=== PATIENT | female | born 1960 | race Caucasian/White ===

== ENCOUNTER 2017-11-11 10:23 | Inpatient (IN) | payer OTHER ==
[~2017-11-11] VITALS: Ht 162.6 cm; Wt 71.7 kg
[2017-11-11 10:29] VITALS: BP 136/69
[2017-11-11] MEDS ORDERED: FLONASE 0.05%50 MCG NASAL (10:34)
[2017-11-11] MEDS ORDERED: CLARITIN10 MG PO (10:34)
[2017-11-11 11:08] LABS: ABSOLUTE BASOPHILS 0.1 thou/uL (0.0-0.2); ABSOLUTE EOSINOPHILS 0.1 thou/uL (0.0-0.7); ABSOLUTE LYMPHOCYTES 2.3 thou/uL (0.8-5.3); ABSOLUTE MONOCYTES 0.4 thou/uL (0.0-1.2); ABSOLUTE NEUTROPHILS 5.4 thou/uL (1.6-8.1); BASOPHILS 0.9 %; EOSINOPHILS 1.3 %; HEMATOCRIT 42.2 % (37.0-47.0); HEMOGLOBIN 13.2 gm/dL (12.0-15.0); LYMPHOCYTES 27.4 %; MCHC 31.4 g/dL (28.0-37.0); MCV 76.5 fL (80.0-100.0); MONOCYTES 5.1 %; NUCLEATED RBCS 0 /100WBC; PLATELET COUNT* 350 thou/uL (150-400); POLYS 65.3 %; RBC 5.52 mil/uL (4.20-5.00); RDW-CV 15.6 % (10.5-14.5); WBC 8.3 thou/uL (4.0-11.0)
[2017-11-11 11:21] LABS: APTT 25.7 Seconds (25.0-31.3); PROTIME 9.4 Seconds (9.20-11.50)
[2017-11-11 11:23] LABS: CREATININE 0.9 mg/dL (0.6-1.3); POTASSIUM 3.8 mmol/L (3.5-5.1)
[2017-11-11 11:25] LABS: TOTAL BILIRUBIN 0.3 mg/dL (<0.1-1.0); TOTAL PROTEIN 6.9 g/dL (6.4-8.2)
[2017-11-11 12:08] LABS: URINE BILIRUBIN NEGATIVE (Negative); URINE BLOOD 3+ (Negative); URINE CLARITY CLEAR; URINE COLOR YELLOW; URINE GLUCOSE-RANDOM 3+ (Negative); URINE KETONES NEGATIVE (Negative); URINE LEUKOCYTES-REFLEX NEGATIVE (Negative); URINE NITRITE-REFLEX NEGATIVE (Negative); URINE PROTEIN NEGATIVE (Negative); URINE UROBILINOGEN 0.2 E.U./dl (0.2-1.0)
[2017-11-11 12:19] LABS: BACTERIA-REFLEX None Seen /HPF (None Seen); CASTS None Seen /LPF (None Seen); CRYSTALS None Seen /LPF (None Seen); SQUAMOUS 4-10 Moderate /LPF (0-3); URINE RBC >20 Many /HPF (0-2); URINE WBC-REFLEX 0-5 Rare /HPF (0-5)
--- NOTE | 2017-11-11 13:05 | NUR ---
SURGERY RESIDENT CONSULTING WITH PATIENT.
[2017-11-11 14:30] VITALS: BP 139/89
[2017-11-11 14:36] VITALS: BP 132/82
[2017-11-11 16:02] LABS: ABSOLUTE BASOPHILS 0.1 thou/uL (0.0-0.2); ABSOLUTE EOSINOPHILS 0.1 thou/uL (0.0-0.7); ABSOLUTE LYMPHOCYTES 3.4 thou/uL (0.8-5.3); ABSOLUTE MONOCYTES 0.6 thou/uL (0.0-1.2); ABSOLUTE NEUTROPHILS 8.7 thou/uL (1.6-8.1); BASOPHILS 0.6 %; EOSINOPHILS 0.8 %; HEMATOCRIT 44.8 % (37.0-47.0); HEMOGLOBIN 14.2 gm/dL (12.0-15.0); LYMPHOCYTES 26.6 %; MCH 23.8 pg (26.0-34.0); MCHC 31.7 g/dL (28.0-37.0); MCV 75.3 fL (80.0-100.0); MONOCYTES 4.6 %; NUCLEATED RBCS 0 /100WBC; PLATELET COUNT* 394 thou/uL (150-400); POLYS 67.4 %; RBC 5.95 mil/uL (4.20-5.00); RDW-CV 15.9 % (10.5-14.5); WBC 12.9 thou/uL (4.0-11.0)
[2017-11-11 16:14] LABS: CALCIUM 8.6 mg/dL (8.5-10.1); CREATININE 0.7 mg/dL (0.6-1.3); POTASSIUM 3.7 mmol/L (3.5-5.1)
[2017-11-11 16:19] LABS: ALBUMIN 2.9 g/dL (3.4-5.0); TOTAL BILIRUBIN 0.3 mg/dL (<0.1-1.0)
[2017-11-11 20:00] VITALS: BP 104/42
--- NOTE | 2017-11-11 20:07 | NUR ---
ALERT AND ORIENTED X4. UP WITH STAND BY ASSIST IN ROOM. IV IS PATENT AND INFUSING. PAIN BEING MANAGED WITH BARRIER CREAM AND TYLENOL. DENIES NAUSEA. VSS ON ROOM AIR. HOURLY ROUNDS HAVE BEEN MAINTAINED THROUGHOUT SHIFT. CALL LIGHT IS WITHIN REACH. NURSING WILL CONTINUE TO MONITOR.
[2017-11-11 23:46] VITALS: BP 132/60
[2017-11-12 03:13] LABS: GLYCOHEMOGLOBIN (HGB A1C) 12.6 % (4.8-5.6)
[2017-11-12 03:30] VITALS: BP 111/55
[2017-11-12 04:46] LABS: CALCIUM 8.3 mg/dL (8.5-10.1); CREATININE 0.8 mg/dL (0.6-1.3); POTASSIUM 3.1 mmol/L (3.5-5.1)
[2017-11-12 04:48] LABS: ABSOLUTE BASOPHILS 0.1 thou/uL (0.0-0.2); ABSOLUTE LYMPHOCYTES 2.1 thou/uL (0.8-5.3); ABSOLUTE MONOCYTES 0.6 thou/uL (0.0-1.2); ABSOLUTE NEUTROPHILS 9.9 thou/uL (1.6-8.1); BASOPHILS 0.4 %; EOSINOPHILS 0.1 %; HEMATOCRIT 41.7 % (37.0-47.0); HEMOGLOBIN 13.1 gm/dL (12.0-15.0); LYMPHOCYTES 16.8 %; MCH 23.6 pg (26.0-34.0); MCHC 31.4 g/dL (28.0-37.0); MCV 75.2 fL (80.0-100.0); MONOCYTES 4.5 %; MPV 8.2 fl. (7.2-11.1); NUCLEATED RBCS 0 /100WBC; PLATELET COUNT* 349 thou/uL (150-400); POLYS 78.2 %; RBC 5.55 mil/uL (4.20-5.00); RDW-CV 15.7 % (10.5-14.5); WBC 12.7 thou/uL (4.0-11.0)
--- NOTE | 2017-11-12 07:55 | NUR ---
Alert and oriented x 4. She is up with stand by assist to the bathroom. She has a large,bloody,spongy mass that is coming out of her rectum. It was the size of a softball at start of the shift and this am it appeared to have decreased in size but had more bloody drainage. She did her golytely prep until midnight and it did make her nauseated and she had a small amount of emesis x 2. She was tearful and anxious this am. Dr Oleary went in and this helped decrease her anxiety. She hasn't had anything by mouth since midnight. She has been awake most of the night.
[2017-11-12 08:00] VITALS: BP 114/51
--- NOTE | 2017-11-12 11:00 | NUR ---
SPOKE WITH PT. INTRODUCED ROLE OF CM. SHE LIVES WITH HER PARENTS AND SISTER. SHE WORKS OUTSIDE THE HOME. HER FAMILY IS SUPPORTIVE. DOES NOT USE DME AND NO HX OF HH OR SNF. SHE SAID SHE REALLY DID NOT FEEL SHE WILL HAVE ANY DISCHARGE NEEDS.
--- NOTE | 2017-11-12 12:00 | NUR ---
PLACED FROZEN MAXIPADS WITH TUCKS ON PT'S RECTAL AREA FOR COMFORT. PT STATES RELIEF
--- NOTE | 2017-11-12 18:27 | NUR ---
PT BACK FROM SURGERY. IVF INFUSING. VSS
--- NOTE | 2017-11-12 18:28 | NUR ---
PT UP IN ROOM THROUGHOUT SHIFT. DENIES PAIN. FAMILY AT BS. PT TO OR THIS AFTERNOON.
[2017-11-12 20:00] VITALS: BP 122/73
[2017-11-13 00:02] VITALS: BP 114/62
[2017-11-13 04:08] VITALS: BP 110/55
[2017-11-13 04:17] LABS: HEMATOCRIT 31.8 % (37.0-47.0); MCH 24.6 pg (26.0-34.0); MCHC 32.6 g/dL (28.0-37.0); MCV 75.4 fL (80.0-100.0); RBC 4.22 mil/uL (4.20-5.00); RDW-CV 15.8 % (10.5-14.5); WBC 8.9 thou/uL (4.0-11.0)
[2017-11-13 04:49] LABS: HEMOGLOBIN 10.4 gm/dL (12.0-15.0)
[2017-11-13 04:55] LABS: CALCIUM 8.1 mg/dL (8.5-10.1); CREATININE 0.6 mg/dL (0.6-1.3); MAGNESIUM 1.6 mg/dL (1.8-2.4); PHOSPHORUS* 4.3 mg/dL (2.5-4.9); POTASSIUM 4.2 mmol/L (3.5-5.1)
--- NOTE | 2017-11-13 04:57 | NUR ---
PATIENT ORIENTED X4 ON HOURLY ROUNDS. DENIES PAIN. UP AD HAYDEN. IVF INFUSING ORDERED. TOLERATING DIET. STATES THAT SHE IS PASSING GAS, AND ALSO STATED THAT SHE PASSED ONE HALF DOLLAR SIZE DARK RED CLOT OVERNIGHT. VITALS STABLE ON ROOM AIR. SISTER AT BEDSIDE. WILL CONTINUE TO MONITOR.
[2017-11-13 08:30] VITALS: BP 117/63
[2017-11-13 08:54] LABS: HEMOGLOBIN 11.1 gm/dL (12.0-15.0)
[2017-11-13] MEDS ORDERED: A.E.R PADS1 JAR TOP (10:25)
[2017-11-13] MEDS ORDERED: AMOXICILLIN 50500 MG PO (10:26)
[2017-11-13] MEDS ORDERED: METFORMIN HCL500 MG PO (10:28)
[2017-11-13 13:29] VITALS: BP 117/63
[2017-11-13] MEDS ORDERED: COLACE100 MG PO (13:48)
--- NOTE | 2017-11-13 14:50 | NUR ---
PATIENT DISCHARGED FROM UNIT AT 1445. ALERT AND ORIENTED X 4. VITAL SIGNS STABLE ON ROOM AIR. UP AD HAYDEN IN ROOM AND AMBULATED IN HALLWAY. IV DISCONTINUED. DISCHARGE INSTRUCTIONS, SCRIPTS, AND MEDICATION INFORMATION GIVEN TO PATIENT. LEFT WITH ALL BELONGINGS. PATIENT LEFT WITH SISTER VIA SUV.
--- NOTE | 2017-11-16 15:16 | S ---
[place] [address] SURGICAL PATH RPT PROCEDURE Name: PASCALE TAYLOR Room: [address] IN M.R.#: [id number] Admission: 11/11/17 Date of : 56 Discharge: 11/13/17 Report #: [id number] Path Case #: [id number] PATHOLOGY REPORT COLLECTION DATE: 11/12/2017 RECEIVED DATE: 11/15/2017 SUBMITTING PHYS: Dr. Leah Pederson OTHER PHYS: Dr. Dung Valenzuela MD SPECIMEN(S) RECEIVED: A.Polyp at 35 cm B.Rectal polyp (short stitch distal, long stitch left lateral) * * * * * * * * * * * * FINAL DIAGNOSIS: A. Polyp at 35 cm: - Tubular adenoma, negative for high grade dysplasia. B. 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 See comment. COMMENT: B15 reviewed with Dr. Ehsan Workman who agrees with the diagnosis. (SUNNI:db; 11/16/2017) PATHOLOGIST: Jersey Martinez M.D. REPORT ELECTRONICALLY SIGNED BY: Jersey Martinze M.D. DATE/TIME: 11/16/2017 15:15 * * * * * * * * * * * * GROSS PATHOLOGY: A. Received in formalin labeled "Pascale Taylor, polyp at 35 cm," is a segment of everett soft tissue measuring 0.4 cm in maximum dimension. The specimen is submitted entirely in cassette A1. B. The specimen is received in formalin labeled "Pascale Taylor, rectal polyp, long stitch left lateral, short stitch distal". Received is a large light brown, friable polypoid-appearing mass measuring 7.2 x 5.6 x 5.1 cm in greatest dimensions with a short suture designating the distal aspect and a long suture designating the left lateral aspect. The short suture is further designated as the 6:00 margin and the long suture is further designated as the 9:00 margin. The resection margin measures 4.1 x 1.2 cm and is surrounded by medina-brown mucosa. The surgical margin is inked as follows: 9 to 3:00-black, 3 to 6:00-yellow, and 6 to 9:00-blue. Sectioning through the specimen reveals white-everett to pink-everett, [place] [address] SURGICAL PATH RPT PROCEDURE Name: PASCALE TAYLOR Room: [address]#: [id number] Admission: 11/11/17 Date of : 56 Discharge: 11/13/17 Report #: [id number] Path Case #: [id number] The specimen is submitted representatively as follows: B1-B9 entire resection margin submitted from 3:00 to 9:00 aspects, with the 3:00 aspect in cassette B1 and the 9:00 aspect in cassette B9 B10-B15 additional claim service representative sections of polyp. (CAA; 11/15/2017) CLINICAL HISTORY: Prolapsed rectal mass INITIAL CPT CODE(S): A; 66525 B; 96281 Professional services performed by [facility] at [facility], [facility] [address], [place] [address]. Technical services performed by [facility] at [address] [place] [address], [address], [place] [address]. [facility] [address] [place] [address] PHONE: [phone] DIRECTOR: Donal Woods M.D. * * * END OF REPORT * * *
--- NOTE | 2017-12-01 09:26 | OP ---
[facility] [address] [place] [address] OPERATIVE REPORT Name: BRITTNEE TAYLOR Room: [address] IN M.R.#: [id number] Admission: 11/11/17 Attend Phys: Samuel Mackenzie Discharge: 11/13/17 Date of : 56 Report #: [id number] THIS REPORT FOR: //name// CC: Deepti Kaur DATE OF SERVICE: 11/12/2017 PREOPERATIVE DIAGNOSIS: Large rectal polyp with prolapse. POSTOPERATIVE DIAGNOSIS: Large rectal polyp with prolapse. PROCEDURE: 1. Colonoscopy to cecum with snare polypectomy. 2. Transanal excision of rectal polyp. SURGEON: Leah Pederson MD SEWING ROOM SUPERVISOR: Cecilia Hill DO ESTIMATED BLOOD LOSS: 5 mL. COMPLICATIONS: None. FINDINGS: 1. Polyp approximately 0.7 cm at 35 cm from verge removed by snare polypectomy and retrieved completely. 2. Large pomegranate sized polyp, 40% circumference from posterior midline to right lateral at 11 cm from the verge, tattoo distal and lateral to its base with clearly good mucosal base at the bottom of the stalk. ANESTHESIA: GET. DESCRIPTION OF PROCEDURE: Full informed consent obtained preoperatively. Full discussion of risks, benefits, alternatives questions answered. The patient understood risk of bleeding, infection, reoperation, missed pathology and colonoscopy, perforation of the colon or severe bleeding, transanal excision leading to fecal incontinence or stenosis and need for additional procedures in the future depending on pathology and/or recurrence of prolapse. She understood and wished to proceed. She was taken to the operating room, prepped and draped in standard sterile fashion. Timeout performed with all in agreement. Colonoscopy first checked. After digital rectal exam, it was advanced under direct visualization. Sigmoid loop was taken out, advanced up the left colon across the transverse. Transverse loop was removed cecum[place] [address] OPERATIVE REPORT Name: BRITTNEE TAYLOR Sarah Room: [address] IN [facility].#: [id number] Admission: 11/11/17 Attend Phys: Samuel Mackenzie Discharge: 11/13/17 Date of : 56 Report #: [id number] identification of the appendiceal orifice and intubation of ileocecal valve. prep was fair and there was copious fluid with bubbles identified throughout the colon, slowly withdrew, taking over 10 minutes, maintaining a 360 degree visualization. I returned to approximately 35 cm from the verge. At this level, a very small polyp 7.7 cm was removed without complication and was retrieved completely. There was no evidence of any bleeding. This was with hot snare. Next, I returned to the anus. Perez bivalve was inserted. The prolapse was reduced completely. It appeared to have a wide but narrow stalk. I used Harmonic to take this using a rim of approximately 1 cm healthy mucosal base. Every few bites, a [id number] stitch of 3-0 Vicryl was placed. Prior to placing the last bite, it was tattooed at the base of lateral sides, posterior margin in both lateral sides distal to it. This was allowed to return back into the abdomen after first confirming there was no bleeding. Next, I palpated and then measured. It was at approximately 11 cm from the verge at its base. There was no evidence of bleeding. Sponge, needle and instrument counts were correct at the end of the case. The patient tolerated well. <ELECTRONICALLY SIGNED> By: Leah Pederson MD 12/01/17 0926 [id number] Pederson MD /nt
== END 2017-11-13 14:45 | disposition home or self-care (01) | DRG 395 ==
LOC: M.ERS 10:23 → M.TBA-ER 14:20 → M.ORTHSURG 14:20
PROVIDERS: Nurse Practitioner Family; Surgery; ADMIT Internal Medicine
PROC: 0DBP8ZZ Excision of Rectum, Via Natural or Artificial Opening Endoscopic (ICD-10-PCS; principal; 2017-11-12)
DX: K62.1 Rectal polyp (principal); K62.3 Rectal prolapse; E11.65 Type 2 diabetes mellitus with hyperglycemia; J45.909 Unspecified asthma, uncomplicated; Z87.891 Personal history of nicotine dependence; Z80.3 Family history of malignant neoplasm of breast; Z80.0 Family history of malignant neoplasm of digestive organs